=== PATIENT | male | born 1980 | race Caucasian/White ===

== ENCOUNTER 2019-04-05 09:54 | Emergency (ER) | payer BC ==
[2019-04-05] MEDS ORDERED: predniSONE 20 MG TAB ONE (10:42)
[2019-04-05] MEDS ORDERED: HYDROmorphone 0.5 MG/0.5 ML SYRINGE ONE (10:42)
== END 2019-04-05 12:15 | disposition home or self-care (01) ==
LOC: MADERS 09:54
DX: M54.5 Low back pain (principal); E78.5 Hyperlipidemia, unspecified; E78.00 Pure hypercholesterolemia, unspecified; Z79.899 Other long term (current) drug therapy
CPT/HCPCS: 96372; 99283; J1170; J7512